=== PATIENT | male | born 1965 | race Caucasian/White ===

== ENCOUNTER → 2018-04-02 | Outpatient (CLI) | payer OTHER ==
[2018-04-02 11:44] LABS: HCT 46.6 % (39.0-53.0); MCH 30.5 pg (25.0-35.0); MCHC 34.4 g/dL (31.0-37.0); MCV 88.8 fL (80.0-100.0); Mean Platelet Volume 6.4; Platelet Count 237 k/uL (150-450); RBC 5.26 m/uL (4.30-5.90); RDW 13.3 % (11.5-15.5)
[2018-04-02 11:50] LABS: Albumin 4.6 g/dL (3.5-5.0); Potassium 4.9 mmol/L (3.5-5.1); Total Bilirubin 0.7 mg/dL (0.2-1.3); Total Protein 7.6 g/dL (6.3-8.2)
[2018-04-02 11:54] LABS: Partial Thromboplastin Time 23.1 sec (22.0-30.0); Prothrombin Time 9.8 sec (9.0-12.0)
[2018-04-02 12:20] LABS: Appearance,Urine Clear (Clear); Bilirubin,Urine Negative (Negative); Blood,Urine Negative (Negative); Color,Urine Yellow; Glucose,Urine (UA) Negative (Negative); Ketones,Urine Negative (Negative); Leukocyte Esterase,Urine Negative (Negative); Nitrite,Urine Negative (Negative); Protein,Urine Negative (Negative); Specific Gravity,Urine 1.018 (1.001-1.035); Urobilinogen,Urine <2.0 mg/dL (<2.0)
== END | disposition home or self-care (01) ==
LOC: LABPAT 10:44
PROVIDERS: ATTEND Orthopaedic Surgery
DX: Z01.812 Encounter for preprocedural laboratory examination (principal)
CPT/HCPCS: 36415; 80053; 81003; 85027; 85610; 85730; 86850; 86900; 86901; 87070

== ENCOUNTER 2018-04-12 07:12 | Inpatient (IN) | payer OTHER ==
[2018-04-04 11:46] VITALS: BMI 28.8
[~2018-04-12 07:12] MED LIST: ACETAMINOPHEN TAB 500 MG TAB PO ONE; MELOXICAM 7.5 MG TAB PO ONE; MORPHINE SULFATE 2 MG/ML SYRINGE IV PRN; ONDANSETRON 4 MG/2 ML VIAL IVP PRN; ROPIVACAINE 246.25 MG, EPINEPHrine 0.5 MG, KETOROLAC 30 MG, cloNIDine HCL/PF 80 MCG, WA... MISCELLANE ONE; TRANEXAMIC ACID 1,000 MG in SODIUM CHLORIDE 0.9% 50 ML IVPB ONE; ceFAZolin IN SWFI 2 GM/20 ML SYRINGE IVP ONE
[2018-04-12] MEDS ORDERED: LIDOCAINE 1% 20 ML VIAL (10MG/ML) FOR IV START INTRADERMA ONE (07:56)
[2018-04-12] MEDS: LACTATED RINGERS 1,000 ML IV SCH (07:56)
[2018-04-12] MEDS ORDERED: MIDAZOLAM 2 MG/2 ML VIAL IV ONE (08:20)
[2018-04-12] MEDS ORDERED: PHENYLEPHRINE-0.9% NACL SYG 1 MG/10 ML SYRINGE ONE (09:16)
[2018-04-12] MEDS ORDERED: PROPOFOL 10 MG/ML 20 ML VIAL IV ONE (09:16)
[2018-04-12] MEDS ORDERED: SODIUM CHLORIDE 0.9% IRRIG 1,000 ML BTL IRRIGATION ONE (09:16)
[2018-04-12] MEDS ORDERED: MIDAZOLAM 2 MG/2 ML VIAL ONE (09:16)
[2018-04-12] MEDS ORDERED: fentaNYL (PF) 50 MCG/ML 2 ML AMP ONE (09:16)
[2018-04-12] MEDS ORDERED: SUCCINYLCHOLINE CHLORIDE 100 MG/5 ML SYR IV ONE (09:16)
[2018-04-12] MEDS ORDERED: SODIUM CHLORIDE 0.9% 100 ML BAG ONE (09:16)
[2018-04-12] MEDS ORDERED: TRANEXAMIC ACID 1,000 MG/10 ML VIAL ONE (09:16)
[2018-04-12] MEDS ORDERED: BUPIVACAINE (PF) 0.5% 30 ML VIAL ONE (09:16)
[2018-04-12] MEDS ORDERED: ePHEDrine SULFATE/0.9% NACL/PF 50 MG/5 ML SYRINGE IV ONE (09:16)
[2018-04-12] MEDS ORDERED: HEPARIN SODIUM,PORCINE 10,000 UNIT/ML 1 ML VIAL ONE (09:16)
[2018-04-12] MEDS ORDERED: MAGNESIUM HYDROXIDE 2,400 MG/10 ML CUP PO PRN (09:27)
[2018-04-12] MEDS ORDERED: HYDROmorphone 1 MG/ML 1 ML SYRINGE IVP PRN ×3 (09:27)
[2018-04-12] MEDS ORDERED: DIAZEPAM 5 MG TAB PO PRN (09:27)
[2018-04-12] MEDS ORDERED: ONDANSETRON 4 MG/2 ML VIAL IVP PRN (09:27)
[2018-04-12] MEDS ORDERED: NALOXONE 0.4 MG/ML 1 ML VIAL IV PRN (09:27)
[2018-04-12] MEDS ORDERED: HYDROcodone/APAP 5-325MG 1 EACH TAB PO PRN (09:27)
[2018-04-12] MEDS ORDERED: hydrOXYzine PAMOATE 25 MG CAP PO PRN (09:27)
[2018-04-12] MEDS ORDERED: ceFAZolin 3,000 MG in SODIUM CHLORIDE 0.9% IRRIGATIO 3,000 ML IRRIGATION ONE (09:57)
[2018-04-12] MEDS ORDERED: LACTATED RINGERS 1,000 ML IV ONE (10:21)
--- NOTE | 2018-04-12 10:56 | P.OP ---
Date of Procedure: 04/12/18 Preoperative Diagnosis: Severe osteoarthritis right hip Postoperative Diagnosis: Severe osteoarthritis right hip Procedure(s) Performed: Right total hip arthroplasty with a direct anterior approach Implants: Munoz and nephew Polarstem size 4 standard Munoz & Nephew R3, 3 hole acetabular shell, 54 mm Munoz & Nephew reflection 6.5 mm cancellus screw, 20 mm, 25 mm Munoz & Nephew R3, XLPE 20 acetabular liner Munoz [employer] Nephew Oxinium femoral head 36 m, +4 All components were press-fit. The articulation is Oxinium on polyethylene. Anesthesia: spinal Surgeon: Reynaldo Landeros Stone Setter #1: Rachelle Allison Stone Setter #2: Jacek Chapa Estimated Blood Loss (ml): 200 (120 mL returned with Cell Saver) Pathology: other (Femoral head) Condition: stable Disposition: PACU Indications for Procedure: After failure of conservative treatment we discussed the surgical and nonsurgical treatment options at length. Patient wishes to proceed with a total hip arthroplasty with a direct anterior approach. Complications specific to this procedure were discussed at length, including but not limited to infection, leg length discrepancy, dislocation, and nerve injury. Patient is aware of all these complications and informed consent was obtained Operative Findings: The operative findings are consistent with severe osteoarthritis of the right hip Description of Procedure: Patient was seen and evaluated in the preoperative area, consent was reviewed, and the surgical site was marked with a skin marker. Patient was then brought to the operating room and given prophylactic antibiotics intravenously. 1 g of Tranexamic acid was also given. A spinal anesthetic was administered by the anesthesia department. The patient was then placed on the [place] table with the bony prominences well-padded. The hip area was then prepped and draped in usual sterile fashion. A universal timeout was then performed, which confirmed the patient's name, surgical site, ALLERGIES, and procedure being performed. Next the incision site was located at 1 cm distal and 1 cm lateral to the anterior superior iliac spine. The skin and subcutaneous tissues were sharply incised. Incision was carefully dissected down to the fascia overlying the tensor fascia vicente muscle. This fascia was then incised in line with the incision. Next, using blunt finger dissection, the tensor fascia vicente muscle was dissected off its investing fascia. The muscle was then carefully retracted laterally with a cobra retractor over the lateral neck of the femur. Next, the circumflex vessels were identified and cauterized using the AquaMantis device. The anterior hip capsule was then exposed. The capsule was then opened and an inverted T fashion. Cobra retractors were then placed intracapsularly. The proximal femur was then visualized. The femoral neck was then osteotomized appropriate level above the lesser trochanter. Small amount of traction was placed with the [place] table. A small wedge of bone was then removed from the remaining femoral head. Next, using a corkscrew femoral head was easily removed from the acetabulum. On gross visual inspection, the femoral head had complete loss of articular cartilage in multiple periarticular osteophytes. Attention was then turned to the acetabulum. the acetabulum was exposed and any remaining labrum was excised. Sequential reaming of the acetabulum was performed using fluoroscopic guidance. When the appropriate size was reached, a trial was then placed. The position and fit of the trial was checked with fluoroscopy. The trial was then removed. Then, using fluoroscopic guidance, the final implant was impacted at 20 of anteversion and 40 of abduction, and fully seated in the acetabulum. 2 screws were then placed in the acetabulum. Again fluoroscopy was used to check position of the screws. Next, the liner was then impacted, with a 20 elevated liner located in the anterior superior quadrant. Component locking was confirmed. Attention was then directed to the femur. With the aid of the [place] table, the femur was externally rotated to approximately 130, extended, and abducted under the opposite leg. A side hook was then placed under the proximal femur, and the side hook elevator was used to elevate the proximal femur. Retractors were then placed. A capsular release was performed, as well as a release of the conjoined tendon, which afforded excellent visualization of the proximal femur. Next, a box osteotome was used to lateralize the proximal femur. A hand i thermal cutter was then used to locate the femoral canal. Sequential broaching was then performed with appropriate size which afforded excellent fixation in the proximal femur. A trial was then placed with appropriate head and neck, and the hip was gently reduced with the aid of the [place] table. Fluoroscopy was then used to check position of the components, as well as to ensure equal leg lengths. The hip was then gently dislocated and the trials were then removed. Final implants were then impacted and the hip was again reduced. Final fluoroscopic x-rays confirmed that the components were in anatomic position, as well as equal leg lengths. The hip was also taken through range of motion, and found to be stable. The hip was then copiously irrigated with antibiotic solution with pulsatile lavage. The hip was then irrigated with Irrisept solution. The soft tissues were then injected with a ropivacaine solution, which consisted of 246.25 mg of ropivacaine, 0.5 mg of epinephrine, 30 mg of Toradol, 80 g of clonidine, and 48.45 mL of sterile water, for a total of 100 mL of fluid injected. A second dose of 1 g of Tranexamic acid was also given. the fascia was then closed with 2-0 strata fix suture. The subcutaneous tissue was closed with 3-0 Vicryl. The subcuticular tissue was closed with 3-0 strata fix suture. The skin was then closed with Dermabond glue and a sterile silver dressing. The patient was then transferred to the recovery room in stable condition. The assistant cook KAYLIN Michel was required due to the complexity of surgery, and the need for skilled surgical supply assistant for positioning, draping, exposure, retraction, and closure of the wound.
--- NOTE | 2018-04-12 11:17 | FL ---
Fluoroscopy History: Rtb Hip-Ant 54sec fluoro time Dr.Scott Landeros
[2018-04-12] MEDS: HYDROmorphone 0.5 MG/0.5 ML SYRINGE IVP PRN ×2 (11:47→11:57)
--- NOTE | 2018-04-12 12:08 | XR ---
EXAMINATION TYPE: XR Hip Limited RT DATE OF EXAM: 04/12/2018 CLINICAL HISTORY: Postoperative evaluation TECHNIQUE: Single portable view of the right hip was submitted. FINDINGS: Noted are changes of total hip arthroplasty with femoral and acetabular components appearin g well seated. Alignment is anatomic. Postsurgical soft tissue changes are evident. IMPRESSION: Satisfactory postoperative alignment
[2018-04-12] MEDS ORDERED: SODIUM CHLORIDE 0.9% 1,000 ML IV ONE (13:04)
[2018-04-12] MEDS: SODIUM CHLORIDE 0.9% 1,000 ML IV SCH (15:01)
[2018-04-12 17:06] VITALS: RESP 16
[2018-04-12] MEDS: ceFAZolin IN SWFI 2 GM/20 ML SYRINGE IVP SCH ×2 (17:22→23:52)
[2018-04-12] MEDS: HYDROcodone/APAP 5-325MG 1 EACH TAB PO PRN (20:51)
[2018-04-12] MEDS: ASPIRIN 325 MG TAB PO SCH (20:51)
[2018-04-12] MEDS ORDERED: SENNOSIDES-DOCUSATE SODIUM 1 EACH TAB PO SCH (21:00)
--- NOTE | 2018-04-13 00:26 | CONS ---
CONSULTATION DATE OF CONSULTATION: 04/12/2018. REASON FOR CONSULTATION: Advice regarding DJD and other multiple medical issues, requested by Dr. Landeros. HISTORY OF PRESENT ILLNESS: This 53-year-old gentleman with a past history of DJD, history of back surgery, being followed by Dr. Wei in the outpatient setting, underwent right total knee arthroplasty by Dr. Landeros. The patient tolerated the procedure well. The patient is closely monitored at this time. There is no history of fever rigors no headache loss of seizures. The preop labs including CBC, coags, and hematology were also normal. The blood pressure is well maintained at this time. There is no history of fever, rigors, chills at this time. Occasional cough is reported. PAST MEDICAL HISTORY: History of DJD, history of back surgery. MEDICATIONS: Prior to admission are Tylenol 500 mg every 4 hours p.r.n. ALLERGIES: None. FAMILY HISTORY: No history of heart disease or strokes in the family. SOCIAL HISTORY: No history of smoking. Occasional alcohol intake. REVIEW OF SYSTEMS: ENT: No diminished hearing or vision. CARDIOVASCULAR: No angina. RESPIRATORY: As mentioned earlier. GI: No nausea. : No dysuria. NERVOUS SYSTEM: No numbness or weakness. ALLERGY/IMMUNOLOGY: No asthma or hayfever. MUSCULOSKELETAL: As mentioned earlier. DERMATOLOGY: Negative. ENDOCRINE: No history of diabetes or hypothyroidism. CONSTITUTIONAL: None. PSYCHIATRY: As mentioned earlier. PHYSICAL EXAMINATION: Alert, oriented x3. Pulse 71, blood pressure 133/80, respirations 16, temperature is normal, pulse ox 94% on room air. HEENT: Oral mucosa moist. NECK: No jugular venous distention. No lymph node enlargement. CARDIOVASCULAR: S1 and S2 muffled. LUNGS: Breath sounds diminished at the bases. No rhonchi, no crackles. ABDOMEN: Soft. No mass palpable. LEGS: Status post right hip joint arthroplasty. NERVOUS SYSTEM: Higher functions as mentioned. Moves all 4 limbs equally. No focal motor deficits. LYMPHATICS: No lymph nodes palpable in the neck, axillae or groin. SKIN: No ulcer or rash. LABS: Previous labs are reviewed. ASSESSMENT: 1. Status post right knee total joint arthroplasty. 2. History of degenerative joint disease. 3. History of back surgery. RECOMMENDATIONS AND DISCUSSION: This 53-year-old gentleman who presented following surgery. At this time I recommend to continue current management and symptomatic treatment. DVT prophylaxis. Incentive spirometry. Pain medication recommend. The patient will follow up with primary physician closely in the outpatient setting. We will closely monitor. Thank you, Dr. Landeros, for letting us participate in the care of this patient. SHIVAM / GIOVANNA: [id number] /
[2018-04-13] MEDS: LACTATED RINGERS 1,000 ML IV SCH (06:19)
[2018-04-13 07:31] VITALS: BP 129/78; PULSE 82; TEMP 98.4
[2018-04-13] MEDS: SODIUM CHLORIDE 0.9% 1,000 ML IV SCH (07:32)
[2018-04-13] MEDS: HYDROcodone/APAP 5-325MG 1 EACH TAB PO PRN ×2 (07:34→14:07)
[2018-04-13] MEDS ORDERED: MELOXICAM 7.5 MG TAB PO SCH (09:00)
--- NOTE | 2018-04-13 09:29 | P.DS ---
Providers Date of admission: 04/12/18 07:12 Expected date of discharge: 04/13/18 Attending physician: Reynaldo Landeros Consults: 04/12/18 09:27 Consult Physician Routine Consulting Provider: Krys Romo Consult Reason/Comments: medical mangement Do you want consulting provider notified?: Yes Primary care physician: Niko Wei - Discharge Diagnosis(es) (1) Primary osteoarthritis of right hip Current Visit: Yes Status: Acute (2) S/P total hip arthroplasty Current Visit: Yes Status: Acute Hospital Course: This is a 53-year-old male with known history of degenerative arthritis of the right hip. The patient presents for evaluation. After discussion and consideration patient elects to proceed with total hip arthroplasty. The patient is seen preoperatively by Dr. Landeros and medically cleared for surgery by their primary care physician. Patient is admitted to [facility] on 04/12/2018 for total hip arthroplasty. The procedures performed without complication or sequelae. The patient is doing well postoperatively. Labs and vital signs are stable on day of discharge. On day of discharge patient's hip incision is healing well. There is minimal erythema. There is no drainage noted at this time. There is minimal soft tissue swelling to the hip and thigh. Patient has full foot and ankle motion without difficulty or pain. Neurovascular status to the right lower extremity is intact. Patient is discharged home in good condition. Please see med rec for accurate list of home medications. Plan - Discharge Summary Discharge Rx Participant: Yes New Discharge Prescriptions: New Aspirin 325 mg PO BID #60 tab HYDROcodone/APAP 5-325MG [[place] 5-325] 1 - 2 tab PO Q4-6H PRN #84 tab PRN Reason: Pain Sennosides [Senokot] 1 tab PO BID #60 tablet No Action Acetaminophen [Tylenol Extra Strength] 500 mg PO Q4H PRN PRN Reason: Pain Discharge Medication List Acetaminophen [Tylenol Extra Strength] 500 mg PO Q4H PRN 04/04/18 [History] Aspirin 325 mg PO BID #60 tab 04/13/18 [Rx] HYDROcodone/APAP 5-325MG [[place] 5-325] 1 - 2 tab PO Q4-6H PRN #84 tab 04/13/18 [ Rx] Sennosides [Senokot] 1 tab PO BID #60 tablet 04/13/18 [Rx] Follow up Appointment(s)/Referral(s): Reynaldo Landeros DO [Doctor of Osteopathic Medicine] - 2 Weeks Activity/Diet/Wound Care/Special Instructions: Weightbearing as tolerated with walker. Leave dressing intact. Dressing may be removed by home care nurse in 10 days. May shower with dressing on. Please follow-up with [facility] in 2 weeks and call with any questions or concerns, . Discharge Disposition: HOME WITH HOME HEALTH SERVICES
[2018-04-13 09:48] LABS: Basophils % (A) 0 %; Eosinophils % (A) 0 %; HCT 40.1 % (39.0-53.0); HGB 13.6 gm/dL (13.0-17.5); Lymphocytes # (A) 1.4 k/uL (1.0-4.8); Lymphocytes % (A) 12 %; MCH 30.2 pg (25.0-35.0); MCV 88.9 fL (80.0-100.0); Mean Platelet Volume 6.8; Monocytes # (A) 0.5 k/uL (0-1.0); Monocytes % (A) 4 %; Neutrophils # (A) 9.2 k/uL (1.3-7.7); Neutrophils % (A) 82 %; Platelet Count 183 k/uL (150-450); RBC 4.51 m/uL (4.30-5.90); RDW 13.5 % (11.5-15.5); WBC 11.2 k/uL (3.8-10.6)
[2018-04-13] MEDS: ASPIRIN 325 MG TAB PO SCH (09:57)
--- NOTE | 2018-04-13 15:33 | PN ---
PROGRESS NOTE DATE OF SERVICE: 04/13/2018 This 53-year-old gentleman was admitted with right total hip arthroplasty, is improving significantly. No chest pain. No palpitations. No fever. Being closely monitored. No chest pain. No palpitations. No fever. No shortness of breath. PHYSICAL EXAM: Alert and oriented x3. Pulse 82, blood pressure 129/70, respiration 16, temperature 98.2, pulse ox 96% on room air. GENERAL: Conjunctivae normal. NECK: No jugular venous congestion. CARDIOVASCULAR: S1, S2, muffled. RESPIRATORY: Breath sounds diminished at the bases, no rhonchi, no crackles. ABDOMEN: Soft, nontender. LEGS: Status post right hip arthroplasty. NERVOUS SYSTEM: No focal deficits. LABS: WBC 11.2. ASSESSMENT: 1. Status post right hip arthroplasty, joint arthroplasty. 2. History of degenerative joint disease. 3. History of back surgery. 4. Increased WBC, possibly reactive. RECOMMENDATION: Recommend to continue current management and symptomatic treatment as patient is feeling well at this time. I recommend resume the home medications and DVT prophylaxis. Closely follow with the primary physician and Orthopedic Surgery. Further recommendations to follow. MMODL / IJN: [id number] /
== END 2018-04-13 15:08 | disposition home health service (06) | DRG 470 ==
LOC: 2ORMAIN 07:12 → 4SSUR 13:16
PROVIDERS: ADMIT Orthopaedic Surgery; ATTEND Orthopaedic Surgery
PROC: 0SR906A Replacement of Right Hip Joint with Oxidized Zirconium on Polyethylene Synthetic Substitute, Uncemented, Open Approach (ICD-10-PCS; principal; 2018-04-12 09:15)
DX: M16.11 Unilateral primary osteoarthritis, right hip (principal); M17.11 Unilateral primary osteoarthritis, right knee; K30 Functional dyspepsia; R51 Headache; I83.90 Asymptomatic varicose veins of unspecified lower extremity; Z98.1 Arthrodesis status; Z79.899 Other long term (current) drug therapy; Z79.1 Long term (current) use of non-steroidal anti-inflammatories (NSAID); Z79.891 Long term (current) use of opiate analgesic
CPT/HCPCS: 73501; 85025; 86850; 86891; 86900; 86901; 88300

== ENCOUNTER → 2021-04-24 | Outpatient (CLI) | payer OTHER ==
[2021-04-24 16:23] LABS: Appearance,Urine Clear (Clear); Bilirubin,Urine 2+ (Negative); Blood,Urine Negative (Negative); Color,Urine Yellow; Glucose,Urine (UA) Negative (Negative); Ketones,Urine Negative (Negative); Leukocyte Esterase,Urine Negative (Negative); Nitrite,Urine Negative (Negative); PH, Urine 5.5 (5.0-8.0); Protein,Urine Negative (Negative); Specific Gravity,Urine 1.022 (1.001-1.035); Urobilinogen,Urine <2.0 mg/dL (<2.0)
[2021-04-24 16:29] LABS: ALT 18 U/L (4-49); AST 28 U/L (17-59); African American GFR (CKD) >90 (>60 ml/min/1.73 sqM); Alkaline Phosphatase 71 U/L (38-126); Anion Gap 12 mmol/L; Blood Urea Nitrogen 18 mg/dL (9-20); Calcium 9.8 mg/dL (8.4-10.2); Carbon Dioxide 25 mmol/L (22-30); Chloride 105 mmol/L (98-107); Glucose 95 mg/dL (74-99); Non-African American GFR(CKD) 85 (>60 ml/min/1.73 sqM); Potassium 4.2 mmol/L (3.5-5.1); Sodium 142 mmol/L (137-145); Total Bilirubin 0.7 mg/dL (0.2-1.3); Total Protein 7.8 g/dL (6.3-8.2)
[2021-04-24 16:31] LABS: INR 0.9 (<1.2); Partial Thromboplastin Time 23.5 sec (22.0-30.0); Prothrombin Time 9.9 sec (9.0-12.0)
[2021-04-24 17:52] LABS: HCT 46.3 % (39.0-53.0); MCH 31.9 pg (25.0-35.0); MCHC 34.5 g/dL (31.0-37.0); MCV 92.5 fL (80.0-100.0); Mean Platelet Volume 7.3; Platelet Count 208 k/uL (150-450); RBC 5.01 m/uL (4.30-5.90); RDW 13.6 % (11.5-15.5); WBC 8.7 k/uL (3.8-10.6)
== END | disposition home or self-care (01) ==
LOC: LABPAT 15:25
PROVIDERS: ATTEND Orthopaedic Surgery
DX: Z01.812 Encounter for preprocedural laboratory examination (principal); M16.12 Unilateral primary osteoarthritis, left hip
CPT/HCPCS: 36415; 80053; 81003; 85027; 85610; 85730; 87070; 93005

== ENCOUNTER 2021-05-06 12:19 | Day surgery (SDC) | payer OTHER ==
[2021-05-01 15:29] VITALS: BMI 29.7
[~2021-05-06 12:19] MED LIST changes: -ACETAMINOPHEN TAB 500 MG TAB PO ONE; +ACETAMINOPHEN TAB 500 MG TAB PO PRN; +GABAPENTIN 300 MG CAP PO PRN; +LIDOCAINE 1% (10MG/ML) FOR IV START INTRADERMA PRN; -MELOXICAM 7.5 MG TAB PO ONE; +MELOXICAM 7.5 MG TAB PO PRN; -MORPHINE SULFATE 2 MG/ML SYRINGE IV PRN; +ONDANSETRON 4 MG/2 ML VIAL IVP ONE; -ONDANSETRON 4 MG/2 ML VIAL IVP PRN; -ROPIVACAINE 246.25 MG, EPINEPHrine 0.5 MG, KETOROLAC 30 MG, cloNIDine HCL/PF 80 MCG, WA... MISCELLANE ONE; +TRANEXAMIC ACID 1,000 MG in SODIUM CHLORIDE 0.9% 100 ML IVPB PRN; -TRANEXAMIC ACID 1,000 MG in SODIUM CHLORIDE 0.9% 50 ML IVPB ONE; -ceFAZolin IN SWFI 2 GM/20 ML SYRINGE IVP ONE
[2021-05-06] MEDS: LACTATED RINGERS 1,000 ML IV SCH (13:00)
[2021-05-06] MEDS ORDERED: DEXAMETHASONE SOD PHOSPHATE 4 MG/ML 1 ML VIAL IV ONE (13:04)
[2021-05-06] MEDS ORDERED: ONDANSETRON 4 MG/2 ML VIAL IVP PRN (13:18)
[2021-05-06] MEDS ORDERED: MAGNESIUM HYDROXIDE 2,400 MG/10 ML CUP PO PRN (13:18)
[2021-05-06] MEDS ORDERED: HYDROmorphone 1 MG/ML 1 ML SYRINGE IVP PRN (13:18)
[2021-05-06] MEDS ORDERED: HYDROmorphone 0.5 MG/0.5 ML SYRINGE IVP PRN (13:18)
[2021-05-06] MEDS ORDERED: HYDROmorphone 0.2 MG/1 ML SYRINGE IVP PRN (13:18)
[2021-05-06] MEDS ORDERED: NALOXONE 0.4 MG/ML 1 ML VIAL IV PRN (13:18)
[2021-05-06] MEDS ORDERED: HYDROcodone/APAP 7.5-325MG 1 EACH TAB PO PRN (13:21)
[2021-05-06] MEDS ORDERED: ROPIVACAINE 5 MG/ML 30 ML VIAL MISCELLANE ONE ×2 (13:24→14:56)
[2021-05-06] MEDS ORDERED: ceFAZolin 1,000 MG in SODIUM CHLORIDE 0.9% 1,000 ML IRRIGATION ONE (14:10)
--- NOTE | 2021-05-06 15:06 | P.OP ---
Date of Procedure: 05/06/21 Preoperative Diagnosis: Severe osteoarthritis left hip Postoperative Diagnosis: Severe osteoarthritis left hip Procedure(s) Performed: Left total hip arthroplasty with a direct anterior approach Implants: Munoz & Nephew Polarstem standard size 3 Munoz & Nephew R3, 3 hole hemispherical acetabular shell, 54 mm Munoz & Nephew Reflection 6.5 mm cancellus screw, 25 mm 2 Munoz & Nephew R3, XLPE 20 acetabular liner Munoz [employer] Nephew Oxinium femoral head 36 m, +0 All components were press-fit. The articulation is Oxinium on polyethylene. Anesthesia: GETA Surgeon: Reynaldo Landeros Commissioner Of Conciliation #1: Rachelle Allison Estimated Blood Loss (ml): 150 (The 5 mL returned with Cell Saver) Pathology: other (Femoral head) Condition: stable Disposition: PACU Indications for Procedure: After failure of conservative treatment we discussed the surgical and nonsurgical treatment options at length. Patient wishes to proceed with a total hip arthroplasty with a direct anterior approach. Complications specific to this procedure were discussed at length, including but not limited to infection, leg length discrepancy, dislocation, nerve injury, and fracture. Covid-19 was also discussed at length with the patient, and they are aware of the current policies and procedures. The patient was given the option of delaying surgery, but they elect to proceed knowing these risks. Patient is aware of all these complications and informed consent was obtained Operative Findings: The operative findings are consistent with severe osteoarthritis of the left hip Description of Procedure: Patient was seen and evaluated in the preoperative area and the consent was reviewed. The operative site was marked with a skin marker. The patient was then brought to the operating room and given preoperative antibiotics intravenously. 1 g of Tranexamic acid was also given intravenously. A general anesthetic was administered by the anesthesia department. The patient was then placed on the [place] table with the bony prominences well-padded. The hip area was then prepped with a ChloraPrep solution and draped in the usual sterile fashion. A universal timeout was then performed, which confirmed the patient's name, surgical site, ALLERGIES, and procedure being performed on the consent. Next the incision site was located at 1 cm distal and 2 cm lateral to the anterior superior iliac spine. The skin and subcutaneous tissues were sharply incised. Incision was carefully dissected down to the fascia overlying the tensor fascia vicente muscle. This fascia was then incised in line with the incision. Care was taken to stay laterally in order to avoid injuring the lateral femoral cutaneous nerve. Next, using blunt finger dissection, the tensor fascia vicente muscle was dissected off its investing fascia. The muscle was then carefully retracted laterally with a cobra retractor over the lateral neck of the femur. Next, the circumflex vessels were identified and cauterized using the AquaMantis device. The anterior hip capsule was then exposed. The capsule was then opened and an inverted T fashion. Cobra retractors were then placed intracapsularly. The retractors were maintained intracapsular throughout the procedure. The proximal femur was then visualized. Fluoroscopic x-rays were then taken in order to evaluate the preoperative leg lengths. A small amount of traction was placed on the leg. The femoral neck was then osteotomized appropriate level above the lesser trochanter. A small wedge of bone was then removed from the remaining femoral head. Next, using a corkscrew the femoral head was removed from the acetabulum. On gross visual inspection, the femoral head had complete loss of articular cartilage and multiple periarticular osteophytes. The femoral head was then measured. Attention was then turned to the acetabulum. The acetabulum was exposed and any remaining labrum was excised. Sequential reaming of the acetabulum was performed using fluoroscopic guidance until there was a good bed of bleeding cancellus bone. When the appropriate size was reached, a trial was then placed. The position and fit of the trial was checked with fluoroscopy. The trial was then removed. Then, using fluoroscopic guidance, the final implant was impacted at 20 of anteversion and 40 of abduction, and fully seated in the acetabulum. 2 screws were then placed in the acetabulum. Again fluoroscopy was used to check position of the screws. Next, the liner was then impacted, with a 20 elevated liner located in the anterior superior quadrant. Component locking was confirmed. Attention was then directed to the femur. With the aid of the [place] table, the femur was externally rotated to approximately 130, extended, and adducted under the opposite leg. A side hook was then placed under the proximal femur, and the side hook elevator was used to elevate the proximal femur while releasing the capsule. Retractors were then placed. A capsular release was performed, as well as a release of the conjoined tendon, which afforded excellent visualization of the proximal femur. Next, a box osteotome was used to lateralize the proximal femur. A spinner hand was then used to locate the femoral canal. Sequential broaching was then performed with appropriate size which afforded excellent fixation in the proximal femur. A trial was then placed with appropriate head and neck, and the hip was gently reduced with the aid of the [place] table. Fluoroscopy was then used to check position of the components, as well as to ensure equal leg lengths. The hip was then gently dislocated and the trials were then removed. Final implants were then impacted and the hip was again reduced. Final fluoroscopic x-rays confirmed that the components were in anatomic position, as well as equal leg lengths. The hip was also taken through range of motion, and found to be stable. The hip was then copiously irrigated with antibiotic solution with pulsatile l avage. The hip was then irrigated with Irrisept solution. The soft tissues were then injected with a ropivacaine solution. A second dose of 1 g of Tranexamic acid was also given intravenously. Any blood collected by Cell Saver was then returned to the patient at this time. The fascia was then closed with 2-0 strata fix suture. The subcutaneous tissue was closed with 3-0 Vicryl. The subcuticular tissue was closed with 3-0 strata fix suture. The skin was then closed with Exofin skin glue. After the glue and dried, and Optifoam silver impregnated dressing was applied. The patient was th en transferred to the recovery room in stable condition. The child care assistant KAYLIN Michel was required due to the complexity of surgery, and the need for skilled cardiovascular surgical tech for positioning, draping, exposure, retraction, and closure of the wound.
[2021-05-06] MEDS: HYDROmorphone 0.5 MG/0.5 ML SYRINGE IVP PRN ×8 (15:30→16:28)
--- NOTE | 2021-05-06 15:37 | FL ---
EXAMINATION TYPE: FL guidance operating room, XR Hip Limited LT DATE OF EXAM: 05/06/2021 CLINICAL HISTORY: Pain and osteoarthritis. TECHNIQUE: Fluoroscopy.Limited operative left hip x-ray. COMPARISON: None. FINDINGS: Fluoroscopic guidance was provided during left hip replacement procedure performed by Dr. Landeros. A total of 36 seconds of fluoroscopic time was utilized during the procedure and 2 spot im ages are acquired. Images acquired shows satisfactory positioning of left hip prosthesis on frontal intraoperative view acquired. IMPRESSION: As Above.
[2021-05-06] MEDS ORDERED: LACTATED RINGERS 1,000 ML IV ONE (15:52)
--- NOTE | 2021-05-06 16:31 | XR ---
EXAMINATION TYPE: XR Hip Limited LT DATE OF EXAM: 05/06/2021 CLINICAL HISTORY: Left hip pain and osteoarthritis. TECHNIQUE: Single AP portable view of left hip is obtained immediately postoperatively. COMPARISON: None. FINDINGS: Metallic hardware from left hip arthroplasty is seen and appears satisfactory in alignment and position. There is evidence of recent surgery with subcutaneous gas noted surrounding the prosth esis. IMPRESSION: Metallic hardware from left hip arthroplasty is satisfactory in position.
[2021-05-06] MEDS: SODIUM CHLORIDE 0.9% 1,000 ML IV SCH (17:31)
[2021-05-06] MEDS: ASPIRIN 325 MG TAB PO SCH (20:49)
[2021-05-06] MEDS ORDERED: SENNOSIDES-DOCUSATE SODIUM 1 EACH TAB PO SCH (21:00)
[2021-05-07] MEDS: HYDROcodone/APAP 7.5-325MG 1 EACH TAB PO PRN ×2 (03:32→13:57)
[2021-05-07] MEDS: SODIUM CHLORIDE 0.9% 1,000 ML IV SCH (03:33)
[2021-05-07] MEDS: ASPIRIN 325 MG TAB PO SCH (07:09)
[2021-05-07] MEDS: LACTATED RINGERS 1,000 ML IV SCH (07:24)
[2021-05-07 08:05] VITALS: BP 118/79; PULSE 93; RESP 16; TEMP 98.3
[2021-05-07] MEDS ORDERED: MELOXICAM 7.5 MG TAB PO SCH (09:00)
[2021-05-07 09:26] LABS: Basophils # (A) 0.02 X 10*3/uL (0.00-0.10); Basophils % (A) 0.2 %; Eosinophils # (A) 0.02 X 10*3/uL (0.04-0.35); Eosinophils % (A) 0.2 %; HCT 39.3 % (39.6-50.0); HGB 13.1 g/dL (13.0-17.0); Lymphocytes # (A) 1.78 X 10*3/uL (0.90-5.00); MCH 29.9 pg (27.0-32.0); MCHC 33.3 g/dL (32.0-37.0); MCV 89.7 fL (80.0-97.0); Mean Platelet Volume 10.4 fL (9.5-12.2); Monocytes # (A) 1.11 X 10*3/uL (0.20-1.00); Monocytes % (A) 8.7 %; Neutrophils # (A) 9.75 X 10*3/uL (1.80-7.70); Neutrophils % (A) 76.5 %; Platelet Count 191 X 10*3/uL (140-440); RBC 4.38 X 10*6/uL (4.40-5.60); RDW 12.2 % (11.5-14.5); WBC 12.73 X 10*3/uL (4.50-10.00)
[2021-05-07] MEDS ORDERED: PANTOPRAZOLE 40 MG TABLET PO SCH (11:15)
--- NOTE | 2021-05-07 11:18 | P.DS ---
Providers Expected date of discharge: 05/07/21 Attending physician: Reynaldo Landeros Consults: 05/06/21 13:18 Consult Physician Routine Consulting Provider: Bharath Castellanos Reason/Comments: medical management Do you want consulting provider notified?: Yes Primary care physician: Stated None - Discharge Diagnosis(es) (1) Osteoarthritis of left hip Current Visit: Yes Status: Acute (2) S/P total left hip arthroplasty Current Visit: Yes Status: Acute Hospital Course: This is a 56-year-old male with history of degenerative arthritis of the left hip. The patient has failed outpatient conservative treatment and presents to discuss surgical options. After discussion and consideration the patient elects to proceed with total left hip arthroplasty with direct anterior approach. The patient is evaluated preoperatively by his primary care physician and cleared for surgery. The patient is admitted to [facility] on 05/06/2021 for total left hip arthroplasty was direct anterior approach. The procedure is performed without complication or sequelae. The patient is doing well postoperatively. The patient may be discharged to home today in good condition. Please see [facility] rec for accurate list of home medications. Patient Condition at Discharge: Good Plan - Discharge Summary Discharge Rx Participant: No New Discharge Prescriptions: New HYDROcodone/APAP 7.5-325MG [[place] 7.5-325] 1 - 2 tab PO Q6H PRN #32 tab PRN Reason: Pain Sennosides [Senokot] 2 tab PO DAILY PRN #60 tablet PRN Reason: Constipation Aspirin 325 mg PO BID #60 tab Ondansetron Odt [Zofran Odt] 1 tab PO Q8HR PRN #10 tab PRN Reason: Nausea No Action Acetaminophen [Tylenol Extra Strength] 500 mg PO Q4H PRN PRN Reason: Pain Etodolac 500 mg PO BID PRN PRN Reason: Pain Gabapentin 800 mg PO BID Omeprazole 20 mg PO DAILY Discharge Medication List Acetaminophen [Tylenol Extra Strength] 500 mg PO Q4H PRN 04/04/18 [History] Etodolac 500 mg PO BID PRN 05/01/21 [History] Gabapentin 800 mg PO BID 05/01/21 [History] Omeprazole 20 mg PO DAILY 05/01/21 [History] Aspirin 325 mg PO BID #60 tab 05/06/21 [Rx] HYDROcodone/APAP 7.5-325MG [[place] 7.5-325] 1 - 2 tab PO Q6H PRN #32 tab 05/06/21 [Rx] Ondansetron Odt [Zofran Odt] 1 tab PO Q8HR PRN #10 tab 05/06/21 [Rx] Sennosides [Senokot] 2 tab PO DAILY PRN #60 tablet 05/06/21 [Rx] Follow up Appointment(s)/Referral(s): Bharath Castellanos MD [Medical Doctor] - 05/14/21 11:30 am [facility], [NON-STAFF] - As Needed ([facility] will call you to schedule your home physical therapy visits. ) Reynaldo Landeros DO [Doctor of Osteopathic Medicine] - 05/19/21 1:00 pm (with KAYLIN Bush) Activity/Diet/Wound Care/Special Instructions: Weightbearing as tolerated with walker. Leave dressing intact. Dressing may be removed by home care nurse or by patient in 7 days. Then change dressing twice daily until follow up. May shower with initial dressing intact and after removal. If dressing become saturated, please remove. Please take aspirin 325mg twice daily for 30 days to prevent blood clots. Recommend use of compression stockings daily until follow up to help prevent swelling and blood clots. May remove at night before sleeping. Please follow-up with [facility] in 2 weeks and call with any questions or concerns, . Discharge Disposition: HOME WITH HOME HEALTH SERVICES
--- NOTE | 2021-05-07 13:13 | P.CONS ---
History of Present Illness - Reason for Consult Consult date: 05/07/21 Management medical Requesting physician: Reynaldo Landeros - Chief Complaint Left hip arthroplasty - History of Present Illness A 56-year-old pleasant gentleman, patient of Dr. Ordonez he is healthy, except for arthritis, and BPH, admitted under service of Dr. velez, for elective left total hip arthroplasty. Patient denies any nausea vomiting, no chest pain no shortness of breath, no previous complications from prior surgeries, patient denies any history of CAD CHF COPD, DVT, or PE. No history of neurologic event in the past, patient's independent ambulatory, and is currently in a working field. Does not require any assistive device for ambulation, she underwent a left total hip arthroplasty on 05/06/2021, for which he is doing well. Review of Systems Constitutional: Reports as per HPI, Denies anorexia, Denies chronic pain, Denies malaise, Denies weakness, Denies weight loss Ears, nose, mouth and throat: Reports as per HPI, Denies epistaxis, Denies nasal congestion, Denies sore throat Cardiovascular: Reports as per HPI, Denies chest pain, Denies decreased exercise tolerance, Denies dyspnea on exertion, Denies leg edema Respiratory: Reports as per HPI, Denies cough, Denies cough with sputum, Denies home oxygen, Denies wheezing Gastrointestinal: Reports as per HPI, Denies abdominal pain, Denies bloating, Denies diarrhea, Denies dyspepsia, Denies heartburn, Denies loss of appetite Genitourinary: Reports as per HPI, Denies urinary hesitancy, Denies urinary retention Musculoskeletal: Reports as per HPI, Reports gait dysfunction, Reports limitation of motion Integumentary: Reports as per HPI Neurological: Reports as per HPI, Denies motor disturbance, Denies vertigo Psychiatric: Reports as per HPI, Denies anxiety attacks, Denies confusion, Denies hypersomnia, Denies insomnia, Denies sleep disturbances Endocrine: Reports as per HPI Hematologic/Lymphatic: Reports as per HPI, Denies easy bleeding, Denies easy bruising, Denies lymphadenopathy, Denies lymphedema, Denies thrombophilia Allergic/Immunologic: Reports as per HPI, Denies allergic rhinitis Past Medical History Past Medical History: Osteoarthritis (OA) History of Any Multi-Drug Resistant Organisms: None Reported Past Surgical History: Back Surgery, Joint Replacement Additional Past Surgical History / Comment(s): RT MICAH Past Anesthesia/Blood Transfusion Reactions: No Reported Reaction Additional Past Anesthesia/Blood Transfusion Reaction / Comm: no history of blood tranfusion Past Psychological History: No Psychological Hx Reported Smoking Status: Never smoker Past Alcohol Use History: Rare Past Drug Use History: None Reported - Past Family History Mother Family Medical History: No Reported History Father Family Medical History: Myocardial Infarction (CT) Additional Family Medical History / Comment(s): 4 sisters healthy, 2 brothers healthy, 3 daughters healthy, 2 sons healthy Medications and Allergies Home Medications Medication Instructions Recorded Confirmed Type Acetaminophen [Tylenol Extra 500 mg PO Q4H PRN 04/04/18 05/06/21 History Strength] Etodolac 500 mg PO BID PRN 05/01/21 05/01/21 History Gabapentin 800 mg PO BID 05/01/21 05/06/21 History Omeprazole 20 mg PO DAILY 05/01/21 05/06/21 History Aspirin 325 mg PO BID #60 tab 05/06/21 Rx HYDROcodone/APAP 7.5-325MG [[place] 1 - 2 tab PO Q6H PRN #32 tab 05/06/21 Rx 7.5-325] Ondansetron Odt [Zofran Odt] 1 tab PO Q8HR PRN #10 tab 05/06/21 Rx Sennosides [Senokot] 2 tab PO DAILY PRN #60 tablet 05/06/21 Rx Allergies Allergy/AdvReac Type Severity Reaction Status Date / Time No Known Allergies Allergy Verified 05/06/21 12:38 Physical Exam Vitals: Vital Signs Temp Pulse Pulse Resp BP Pulse Ox 05/07/21 08:00 98.3 F 93 16 118/79 95 05/07/21 01:11 98.6 F 96 15 108/70 95 05/06/21 19:31 97.6 F 95 18 118/81 97 05/06/21 17:16 83 16 130/82 98 05/06/21 17:00 95 16 127/85 98 05/06/21 16:45 93 16 147/85 98 05/06/21 16:32 87 16 155/86 98 05/06/21 16:17 78 16 179/101 98 05/06/21 16:02 78 16 181/105 98 05/06/21 15:46 75 16 181/106 98 05/06/21 15:30 76 16 216/123 98 05/06/21 15:20 97.4 F L 88 10 L 180/90 98 05/06/21 12:54 97.3 F L 76 16 157/98 96 Intake and Output 05/06/21 05/07/21 05/07/21 22:59 06:59 14:59 Intake Total 300 660 Output Total 100 200 Balance 200 460 Intake: IV 300 Intake, IV Titration 660 Amount Sodium Chloride 0.9% 1, 560 000 ml @ 70 mls/hr IV . [id number] OSVALDO Rx#:[id number] ceFAZolin 2 gm In Sodium 100 Chloride 0.9% 50 ml @ 100 mls/hr IVPB Q8H OSVALDO Rx#: [id number] Output: Urine 100 200 Other: Weight 87.8 kg - Constitutional General appearance: average body habitus, cooperative, no acute distress - EENT ENT: NA/AT, normal oropharynx - Neck Neck: normal ROM - Respiratory Respiratory: bilateral: CTA, negative: diminished, dullness, rales, rhonchi - Gastrointestinal General gastrointestinal: normal bowel sounds, soft - Integumentary Integumentary: decreased turgor, normal - Neurologic Neurologic: CNII-XII intact - Musculoskeletal Musculoskeletal: strength equal bilaterally - Psychiatric Psychiatric: A&O x's 3, appropriate affect, intact judgment & insight Results CBC & Chem 7: 05/07/21 05:25 Labs: Abnormal Lab Results - Last 24 Hours (Table) 05/07/21 Range/Units 05:25 WBC 12.73 H (4.50-10.00) X 10*3/uL RBC 4.38 L (4.40-5.60) X 10*6/uL Hct 39.3 L (39.6-50.0) % Immature Gran # 0.05 H (0.00-0.04) X 10*3/uL Neutrophils # 9.75 H (1.80-7.70) X 10*3/uL Monocytes # 1.11 H (0.20-1.00) X 10*3/uL Eosinophils # 0.02 L (0.04-0.35) X 10*3/uL Laboratory Results WBC 12.73 X 10*3/uL (4.50-10.00) H 05/07/21 05:25 RBC 4.38 X 10*6/uL (4.40-5.60) L 05/07/21 05:25 Hgb 13.1 g/dL (13.0-17.0) 05/07/21 05:25 Hct 39.3 % (39.6-50.0) L 05/07/21 05:25 MCV 89.7 fL (80.0-97.0) 05/07/21 05:25 MCH 29.9 pg (27.0-32.0) 05/07/21 05:25 MCHC 33.3 g/dL (32.0-37.0) 05/07/21 05:25 RDW 12.2 % (11.5-14.5) 05/07/21 05:25 Plt Count 191 X 10*3/uL (140-440) 05/07/21 05:25 MPV 10.4 fL (9.5-12.2) 05/07/21 05:25 Immature Gran % (Auto) 0.4 % 05/07/21 05:25 Absolute Nucleated RBC 0 X 10*3/uL (0.00-0.00) 05/07/21 05:25 Neutrophils % 76.5 % 05/07/21 05:25 Lymphocytes % 14.0 % 05/07/21 05:25 Monocytes % 8.7 % 05/07/21 05:25 Eosinophils % 0.2 % 05/07/21 05:25 Basophils % 0.2 % 05/07/21 05:25 Immature Gran # 0.05 X 10*3/uL (0.00-0.04) H 05/07/21 05:25 Neutrophils # 9.75 X 10*3/uL (1.80-7.70) H 05/07/21 05:25 Lymphocytes # 1.78 X 10*3/uL (0.90-5.00) 05/07/21 05:25 Monocytes # 1.11 X 10*3/uL (0.20-1.00) H 05/07/21 05:25 Eosinophils # 0.02 X 10*3/uL (0.04-0.35) L 05/07/21 05:25 Basophils # 0.02 X 10*3/uL (0.00-0.10) 05/07/21 05:25 NRBC/100 WBC Diff 0 /100 WBCS (0.0-0.0) 05/07/21 05:25 Coronavirus (PCR) Not Detected (Not Detectd) 05/06/21 12:41 Blood Type A Positive 04/24/21 15:44 Blood Type Recheck A Pos 04/24/21 15:44 Bld Type Recheck Status No 04/24/21 15:44 Antibody Screen NEGATIVE 04/24/21 15:44 Spec Expiration Date 05/08/21234304/24/21 15:44 Assessment and Plan Plan: 1. Left total hip arthroplasty, secondary to advancing osteoarthritis, patient had a left total hip arthroplasty, anterior approach on 05/06/2021, patient's doing well, without any postoperative nausea vomiting or complications, patient has stable vital signs at this time, is anticipated for home discharge today. Patient is instructed regarding DVT prophylaxis, aspirin 325 mg twice a day with food, as well as incentive spirometry program. Narcotics for pain management, and is best to see her PCP, in 1 week per time and to keep orthopedic appointments 2. BPH without LUT S 3. Gen. is also arthritis, not requiring opiates prior to admission DVT prophylaxis with aspirin GI prophylaxis Stable for discharge
== END 2021-05-07 14:57 | disposition home health service (06) ==
LOC: OR 12:19 → 4SSUR 17:07 → OR 05-07 14:57
PROVIDERS: ATTEND Orthopaedic Surgery
DX: M16.12 Unilateral primary osteoarthritis, left hip (principal); Z20.822 Contact with and (suspected) exposure to COVID-19
CPT/HCPCS: 27130; 86900; 86901; 86850; 87635; 73501; J1100; J0690 ×2; J2405; J2795; J1170; 85025; 86891

== ENCOUNTER → 2024-09-15 | Outpatient (CLI) | payer MEDICARE, OTHER ==
--- NOTE | 2024-09-15 14:36 | CT ---
EXAMINATION TYPE: CT angio chest CT DLP: 386.9 mGycm, Automated exposure control for dose reduction was used. DATE OF EXAM: 09/15/2024 2:20 PM COMPARISON: None CLINICAL INDICATION:Male, 59 years old with history of I78.0 NEW DX HEMORRHAGIC TELANGIECTASIA; HHT P ositive TECHNIQUE/CONTRAST: CTA scan of the thorax is performed with IV Contrast, patient injected with 70 cc mL of Isovue 370, p ulmonary embolism protocol. MIP images are created and reviewed. FINDINGS: Pulmonary Artery: There is no evidence for a filling defect within the pulmonary vasculature to sugge st acute pulmonary embolism. The pulmonary artery is of normal size. Lungs/Pleura: No evidence of focal consolidation, pleural effusion or pneumothorax. Minimal scattered subsegmental atelectasis. No suspicious pulmonary nodule or mass. Elevation of the right hemidiaphra gm. Airway: Large airways are patent. Heart: Size within normal limits.No pericardial effusion. Mild coronary artery calcifications present . Vasculature: Aneurysmal dilatation of the aortic root measuring up to 4.0 cm. Aneurysmal dilatation o f the ascending thoracic aorta measuring up to 4.4 cm. Conventional three-vessel aortic arch. The roz cending thoracic aorta measures up to 2.9 cm. No obvious pulmonary AVM. Mediastinum: No gross evidence of adenopathy. Musculoskeletal: No acute osseous abnormalities. DISH of the thoracic spine. Mild multilevel degenera tive disc disease. Soft Tissues: Unremarkable. Lower neck: No significant findings. Upper Abdomen: Nonobstructive right renal upper pole 5 mm calculus. Small hiatal hernia. IMPRESSION: 1. No evidence of pulmonary embolism or acute thoracic process. 2. 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 [facility], , 09/15/2024 2:34 PM
== END | disposition home or self-care (01) ==
LOC: RADCTMAIN 13:55
PROVIDERS: ATTEND Internal Medicine
DX: I77.810 Thoracic aortic ectasia (principal); I78.0 Hereditary hemorrhagic telangiectasia
CPT/HCPCS: 71275; Q9967